=== PATIENT | female | born 1985 | race Hispanic/Latino ===

== ENCOUNTER → 2021-02-01 | Outpatient (CLI) | payer MEDICAID, OTHER ==
[2021-02-01 10:24] LABS: HEMATOCRIT 34.3 % (36.0-47.0); HEMOGLOBIN 11.2 g/dl (12.0-15.5); MEAN CORPUSCULAR HGB CONC 32.7 g/dl (32.0-36.5); PLATELET COUNT, AUTOMATED 211 10^3/uL (150-450); RED BLOOD COUNT 3.61 10^6/uL (4.00-5.40); WHITE BLOOD COUNT 9.5 10^3/uL (4.0-10.0)
[2021-02-01 10:35] LABS: GLUCOSE CHALLENGE TEST 1 HOUR 176 MG/DL (LESS THAN 140)
[2021-02-01 11:29] LABS: HEPATITIS C VIRUS ABY INDEX < 0.0 INDEX (<0.8); HIV 1&2 SCREEN CENTAUR NEGATIVE (NEGATIVE)
[2021-02-01 13:38] LABS: GC DNA AMPLIFICATION NEGATIVE (NEGATIVE)
== END ==
LOC: M PLALAB 07:30
PROVIDERS: ATTEND Specialist
DX: Z34.82 Encounter for supervision of other normal pregnancy, second trimester (principal); Z3A.00 Weeks of gestation of pregnancy not specified

== ENCOUNTER → 2021-03-06 | Outpatient (REF) | payer OTHER | LOC: M SFHCWAGY 16:49 | PROVIDERS: ATTEND Advanced Practice Midwife | DX: Z36.85 Encounter for antenatal screening for Streptococcus B (principal); Z3A.00 Weeks of gestation of pregnancy not specified; O09.529 Supervision of elderly multigravida, unspecified trimester ==

== ENCOUNTER → 2021-03-14 | Outpatient (CLI) | payer OTHER ==
[~2021-03-14] MED LIST: ACET-683 PO; IBUP-1022 PO; PRENTAB9 PO
== END ==
LOC: M LAB 07:38
PROVIDERS: ATTEND Specialist
DX: Z36.89 Encounter for other specified antenatal screening (principal); Z3A.00 Weeks of gestation of pregnancy not specified

== ENCOUNTER 2021-03-18 14:45 | Outpatient (CLI) | payer OTHER ==
[~2021-03-18] VITALS: Ht 149.9 cm; Wt 69.4 kg
[2021-03-18 15:07] VITALS: BP 141/87
[2021-03-18 15:49] VITALS: BP 136/82
--- NOTE | 2021-03-18 15:54 | IPNPDOC ---
Text Note Date of Service The patient was seen on 03/18/21. NOTE S: 35 yo at 37 weeks presents for an attempt at ECV due to breech presentation. Pt is [place] speaking. No complaints. O: AVSS NAD Abd: NT, gravid FHT: Category one toco: none bedside ultrasound: vertex A/P 35 yo at 37 weeks; fetus is no longer breech No intervention necessary Findings discussed with on line acquisition manager present fu office next week WOJCIECH XIONG MD Mar 18, 2021 15:54
[2021-03-18] MEDS ORDERED: PRENTAB9 PO (15:55)
[2021-03-18] MEDS ORDERED: HOME MED LIST COMPLETE! XX SCH (16:05)
== END 2021-03-18 16:26 | disposition home or self-care (01) ==
LOC: M LDO 14:45
PROVIDERS: ATTEND Specialist
DX: O32.1XX0 Maternal care for breech presentation, not applicable or unspecified (principal); Z03.79 Encounter for other suspected maternal and fetal conditions ruled out; Z3A.37 37 weeks gestation of pregnancy